=== PATIENT | male | born 1930 | race Caucasian/White ===

== ENCOUNTER 2017-07-15 00:30 | Emergency (ER) | payer OTHER, BC ==
[~2017-07-15] VITALS: Ht 167.6 cm; Wt 68.0 kg
--- NOTE | ~2017-07-15 | EKG ---
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 : 1930 Requested By: Tej Yoon Order Number: [id number] MD: Jaden Yanes Measurements Intervals [place] Rate: 63 P: 39 OH: 226 QRS: -7 QRSD: 135 T: 49 QT: 441 QTc: 452 Interpretive Statements Sinus rhythm Prolonged [place] interval Right ventricular conduction delay No previous ECG available for comparison Electronically Signed On 07-15-2017 14:39:10 [employer] OPERATOR by Jaden Yanes [email or web address] <ELECTRONICALLY SIGNED> By: Jaden Yanes MD, [facility] 07/15/17 [id number] Jaden Yanes MD, FACC /EPI
[~2017-07-15 00:30] MED LIST: ALLOPURINOL 30300 M1 PO; ALTACE10 M1 PO; ASPIRIN EC81 M1 PO; CARDIAMIN MULT1 EACH PO; FAMOTIDINE 20 M20 MG PO; HYDROCHLOROTH12.5 MG PO; LIPITOR40 MG PO; NORCO 5-325 TA1 EACH PO; OMEGA-31000 M1 PO; TOPROL XL50 MG PO; VYTORIN 10-801 EACH PO
[2017-07-15] MEDS ORDERED: VITAMIN D3400 UNIT PO (00:51)
[2017-07-15] MEDS ORDERED: HYDROCHLOROTH12.5 M1 PO (00:52)
[2017-07-15] MEDS ORDERED: ARICEPT 5 MG TAB5 MG PO (00:53)
[2017-07-15] MEDS ORDERED: CELEXA20 MG PO (00:54)
[2017-07-15 01:27] LABS: ABSOLUTE NEUTROPHILS 8.1 thou/uL (1.4-8.2); BASOPHILS 0.4 % (0.0-2.0); EOSINOPHILS 2.2 % (0.0-3.0); HEMATOCRIT 37.3 % (42.0-52.0); HEMOGLOBIN 12.6 gm/dL (14.0-18.0); LYMPHOCYTES 8.1 % (24.0-44.0); MCH 32.5 pg (26.0-34.0); MCHC 33.8 g/dL (28.0-37.0); MCV 96.1 fL (80.0-100.0); MONOCYTES 11.4 % (1.0-8.0); PLATELET COUNT 270 thou/uL (150-400); POLYS 77.9 % (36.0-66.0); RBC 3.88 mil/uL (4.50-6.00); RDW 15.2 % (10.5-14.5); WBC 10.4 thou/uL (4.0-11.0)
[2017-07-15 01:31] LABS: ANION GAP 6 mmol/L (7-16); BUN 19 mg/dL (7-18); CALCIUM 9.2 mg/dL (8.5-10.1); CHLORIDE 100 mmol/L (98-107); CO2 31 mmol/L (21-32); GLUCOSE 109 mg/dL (74-106); POTASSIUM 3.7 mmol/L (3.5-5.1); SODIUM 137 mmol/L (136-145)
[2017-07-15 01:40] LABS: TROPONIN-I < 0.04 ng/mL (<0.06)
[2017-07-15] MEDS ORDERED: ATIVAN0.5 M1 PO (02:04)
== END 2017-07-15 02:30 | disposition home or self-care (01) ==
LOC: EDBD 00:30 → ER 00:30
PROVIDERS: Emergency Medicine
DX: M54.2 Cervicalgia (principal); F41.9 Anxiety disorder, unspecified; I10 Essential (primary) hypertension; Z87.891 Personal history of nicotine dependence

== ENCOUNTER 2017-09-30 13:06 | Emergency (ER) | payer OTHER, BC ==
[~2017-09-30] VITALS: Ht 170.2 cm; Wt 66.2 kg
[~2017-09-30 13:06] MED LIST changes: +ARICEPT 5 MG TAB5 MG PO; +ATIVAN0.5 M1 PO; +CELEXA20 MG PO; +HYDROCHLOROTH12.5 M1 PO; +VITAMIN D3400 UNIT PO
[2017-09-30 15:20] VITALS: BP 109/46
[2017-09-30] MEDS ORDERED: HYDROCODONE-AP1 EAC6 PO (15:29)
[2017-09-30] MEDS ORDERED: SENNA8.6 MG PO (15:29)
== END 2017-09-30 15:20 | disposition home or self-care (01) ==
LOC: ER 13:06
DX: S10.0XXA Contusion of throat, initial encounter (principal); S00.93XA Contusion of unspecified part of head, initial encounter; I10 Essential (primary) hypertension; Z95.1 Presence of aortocoronary bypass graft; Z87.891 Personal history of nicotine dependence; W01.0XXA Fall on same level from slipping, tripping and stumbling without subsequent striking against object, initial encounter; Y93.89 Activity, other specified; Y92.89 Other specified places as the place of occurrence of the external cause; Y99.8 Other external cause status